=== PATIENT | female | born 1990 | race Caucasian/White ===

== ENCOUNTER 2017-06-04 10:34 | Emergency (ER) | payer SELFPAY ==
[~2017-06-04] VITALS: Ht 157.5 cm; Wt 102.7 kg
[~2017-06-04 10:34] MED LIST: IBUPROFEN800 MG PO; PRENATAL TABLE1 EAC3 PO
[2017-06-04 12:22] LABS: HEMATOCRIT 43.7 % (36.0-46.0); MCH 29.5 PG (29.0-34.0); MCHC 33.9 G/DL (30.0-36.0); MCV 87.1 FL (83-99); MEAN PLAT.VOLUME 10.9 uM^3 (9.5-12.4); PLATELET COUNT 171 K/uL (156-360); RBC DIS.WIDTH-CV 12.2 % (11.8-14.6); RBC DIS.WIDTH-SD 38.8 % (39-53); RED BLOOD COUNT 5.02 M/uL (3.80-5.20); WHITE BLOOD COUNT 6.8 K/uL (4.1-10.2)
[2017-06-04 12:33] LABS: CHLORIDE 105 mEq/L (99-109); POTASSIUM 3.9 mEq/L (3.7-5.4); SODIUM 136 mEq/L (136-147)
[2017-06-04 12:34] LABS: GLUCOSE 79 mg/dL (70-99)
[2017-06-04 12:36] LABS: ANION GAP 8 MEQ/L (2-14)
[2017-06-04 12:38] LABS: GFR ESTIMATE (CALCULATED) > 59 mL/min/
[2017-06-04 12:39] LABS: UREA NITROGEN (BUN) 14 mg/dL (9-23)
[2017-06-04] MEDS ORDERED: BACTRIM,SEPT1 TABLET PO (13:12)
[2017-06-04] MEDS ORDERED: VICODIN 5-3001 EACH PO (13:12)
[2017-06-04] MEDS ORDERED: ZOFRAN ODT4 MG PO (13:12)
[2017-06-04 13:46] VITALS: BP 142/99
[2017-06-04 14:52] LABS: LYME DISEASE SEROLOGY SCREEN NEGATIVE (NEGATIVE)
[2017-06-05] MEDS ORDERED: VALTREX50 MG/ML PO (13:42)
== END 2017-06-04 13:49 | disposition home or self-care (01) ==
LOC: EME 10:34
PROVIDERS: Physician Assistant
DX: L03.113 Cellulitis of right upper limb (principal)
CPT/HCPCS: 80048; 83605; 85027; 86618; 99281; 99284; J0696; J1885; J3010; J7050

== ENCOUNTER 2017-06-11 09:53 | Emergency (ER) | payer SELFPAY ==
[~2017-06-11] VITALS: Ht 157.5 cm; Wt 101.8 kg
[~2017-06-11 09:53] MED LIST changes: +BACTRIM,SEPT1 TABLET PO; +VALTREX50 MG/ML PO; +VICODIN 5-3001 EACH PO; +ZOFRAN ODT4 MG PO
[2017-06-11 13:02] LABS: EOSINOPHIL (%) 2.1 % (0-5); EOSINOPHIL COUNT 0.1 K/uL (0-0.3); HEMATOCRIT 40.6 % (36.0-46.0); IMMATURE GRANULOCYTE (%) 0.3 % (0.0-0.7); INSTRUMENT ABS NEUTROPHIL CT 2.7 K/uL; LYMPHOCYTE COUNT 0.4 K/uL (1.0-2.8); MCH 29.6 PG (29.0-34.0); MCHC 34.2 G/DL (30.0-36.0); MCV 86.4 FL (83-99); MEAN PLAT.VOLUME 10.8 uM^3 (9.5-12.4); MONOCYTE (%) 3.3 % (3-12); MONOCYTE COUNT 0.1 K/uL (0-0.8); NEUTROPHIL (%) 82.7 % (45-76); NEUTROPHIL COUNT 2.7 K/uL (1.8-6.4); PLATELET COUNT 147 K/uL (156-360); RBC DIS.WIDTH-CV 12.2 % (11.8-14.6); RBC DIS.WIDTH-SD 38.3 % (39-53); WHITE BLOOD COUNT 3.3 K/uL (4.1-10.2)
[2017-06-11 13:13] LABS: CHLORIDE 105 mEq/L (99-109); POTASSIUM 4.3 mEq/L (3.7-5.4); SODIUM 135 mEq/L (136-147)
[2017-06-11 13:15] LABS: GLUCOSE 107 mg/dL (70-99)
[2017-06-11 13:16] LABS: ANION GAP 8 MEQ/L (2-14)
[2017-06-11 13:19] LABS: GFR ESTIMATE (CALCULATED) > 59 mL/min/
[2017-06-11 13:20] LABS: UREA NITROGEN (BUN) 9 mg/dL (9-23)
[2017-06-11 13:56] VITALS: BP 107/71
[2017-06-11] MEDS ORDERED: VISTARIL25 MG PO (14:20)
== END 2017-06-11 14:17 | disposition home or self-care (01) ==
LOC: EME 09:53
PROVIDERS: Emergency Medicine
DX: T78.40XA Allergy, unspecified, initial encounter (principal)
CPT/HCPCS: 80048; 85025; 99281; 99284; J7512

== ENCOUNTER 2018-01-28 05:12 | Inpatient (IN) | payer OTHER ==
[~2018-01-28] VITALS: Ht 157.5 cm; Wt 107.0 kg
[2018-01-28] VITALS (11 sets, daily range): BP systolic 92–133; BP diastolic 58–85
[~2018-01-28 05:12] MED LIST changes: +VISTARIL25 MG PO
[2018-01-28 06:41] LABS: BASOPHIL (%) 0.4 % (0-1); BASOPHIL COUNT 0.1 K/uL (0-0.1); EOSINOPHIL (%) 0.5 % (0-5); EOSINOPHIL COUNT 0.1 K/uL (0-0.3); HEMATOCRIT 34.8 % (36.0-46.0); IMMATURE GRANULOCYTE (%) 0.8 % (0.0-0.7); LYMPHOCYTE (%) 16.3 % (15-42); LYMPHOCYTE COUNT 1.9 K/uL (1.0-2.8); MCH 30.2 PG (29.0-34.0); MCHC 34.5 G/DL (30.0-36.0); MCV 87.7 FL (83-99); MONOCYTE (%) 4.9 % (3-12); MONOCYTE COUNT 0.6 K/uL (0-0.8); NEUTROPHIL (%) 77.1 % (45-76); NEUTROPHIL COUNT 8.9 K/uL (1.8-6.4); PLATELET COUNT 137 K/uL (156-360); RBC DIS.WIDTH-CV 13.6 % (11.8-14.6); RBC DIS.WIDTH-SD 43.3 % (39-53); RED BLOOD COUNT 3.97 M/uL (3.80-5.20); WHITE BLOOD COUNT 11.5 K/uL (4.1-10.2)
[2018-01-28] MEDS ORDERED: LEXAPRO5 MG PO (10:00)
[2018-01-28] MEDS ORDERED: VALTREX1000 MG PO (10:01)
[2018-01-29 06:12] LABS: BASOPHIL (%) 0.6 % (0-1); BASOPHIL COUNT 0.1 K/uL (0-0.1); EOSINOPHIL (%) 0.7 % (0-5); EOSINOPHIL COUNT 0.1 K/uL (0-0.3); HEMATOCRIT 31.2 % (36.0-46.0); HEMOGLOBIN 10.4 G/DL (11.9-15.5); IMMATURE GRANULOCYTE (%) 0.8 % (0.0-0.7); LYMPHOCYTE (%) 24.9 % (15-42); LYMPHOCYTE COUNT 2.5 K/uL (1.0-2.8); MCH 30.5 PG (29.0-34.0); MCHC 33.3 G/DL (30.0-36.0); MCV 91.5 FL (83-99); MONOCYTE (%) 5.4 % (3-12); MONOCYTE COUNT 0.5 K/uL (0-0.8); NEUTROPHIL (%) 67.6 % (45-76); NEUTROPHIL COUNT 6.8 K/uL (1.8-6.4); PLATELET COUNT 137 K/uL (156-360); RBC DIS.WIDTH-CV 14.1 % (11.8-14.6); RED BLOOD COUNT 3.41 M/uL (3.80-5.20)
[2018-01-29 07:09] VITALS: BP 119/53
[2018-01-29 16:04] VITALS: BP 114/67
[2018-01-29 23:19] VITALS: BP 113/55
[2018-01-30 07:19] VITALS: BP 110/52
[2018-01-30] MEDS ORDERED: ESCITALOPRAM OX20 MG PO (11:56)
[2018-01-30] MEDS ORDERED: IBUPROFEN800 MG PO (11:56)
== END 2018-01-30 14:18 | disposition home or self-care (01) | DRG 767 ==
LOC: LDRP-OP 05:12 → 2WEST 05:13 → LDRP-OP 03-18 13:13
PROVIDERS: Advanced Practice Midwife
PROC: 10E0XZZ Delivery of Products of Conception, External Approach (ICD-10-PCS; principal; 2018-01-28)
PROC: 0HQ9XZZ Repair Perineum Skin, External Approach (ICD-10-PCS; 2018-01-28)
PROC: 10D17ZZ Extraction of Products of Conception, Retained, Via Natural or Artificial Opening (ICD-10-PCS; 2018-01-28)
DX: O12.04 Gestational edema, complicating childbirth (principal); O99.12 Other diseases of the blood and blood-forming organs and certain disorders involving the immune mechanism complicating childbirth; F33.9 Major depressive disorder, recurrent, unspecified; Z68.41 Body mass index [BMI] 40.0-44.9, adult; O99.824 Streptococcus B carrier state complicating childbirth; E66.9 Obesity, unspecified; O99.214 Obesity complicating childbirth; F41.9 Anxiety disorder, unspecified; O99.344 Other mental disorders complicating childbirth; Z3A.37 37 weeks gestation of pregnancy; Z37.0 Single live birth; O62.3 Precipitate labor; O73.0 Retained placenta without hemorrhage; O70.0 First degree perineal laceration during delivery
CPT/HCPCS: 85025; 86850; 86880; 86900; 86901; C1755; J0690; J2270; J2540; J7120